=== PATIENT | female | born 1940 | race Hispanic/Latino ===

== ENCOUNTER 2022-08-14 22:29 | Emergency (ER) | payer MEDICARE, MEDICAID, SELFPAY ==
[2022-08-14 22:30] VITALS: BP 240/86; PULSE 65; RESP 16; TEMP 36.7; O2SAT 98; BMI 26.8
--- NOTE | 2022-08-14 22:50 | CT_ITS ---
STUDY: CT BRAIN WITHOUT CONTRAST REASON FOR EXAM: Female, 82 years old. headache RADIATION DOSAGE (If Supplied By Facility): CTDIvol = ( ) mGy, DLP = ( 796.11 ) mGycm TECHNIQUE: Transaxial CT imaging of the brain was performed without administration of intravenous contrast material. Individualized dose optimization techniques were used for this CT. COMPARISON: No relevant priors. FINDINGS: Normal soft tissue structures. Normal calvarium. Normal size ventricles and extra-axial spaces for the patient''s age. Normal white matter tracts of the cerebral hemispheres. There are small punctate calcifications of the basal ganglia which are seen in the aging brain as a normal variant. Normal brainstem. Normal cerebellum. There is no intracranial hemorrhage. There are no findings of an acute ischemic infarction. Intracranial atherosclerosis. Normal visualized paranasal sinuses. CT/Brain/Head without Contrast IMPRESSION: No acute disease. Electronically Signed: Bang Teixeira MD at 23:42 EDT ,
--- NOTE | 2022-08-14 22:50 | EKG12_ITS ---
Test Reason : DYSRHYTHMIA Blood Pressure : / mmHG Vent. Rate : 062 BPM Atrial Rate : 062 BPM P-R Int : 184 ms QRS Dur : 094 ms QT Int : 430 ms P-R-T Axes : 052 -15 068 degrees QTc Int : 436 ms Normal sinus rhythm Nonspecific ST abnormality Abnormal ECG Confirmed by MARGOT BRUSH, MYLENE ([id number]), digital editor JULI MIR ([id number]) on 08/17/2022 9:39:38 AM Referred By: DANIEL Confirmed By:MYLENE FROST MD
[2022-08-14 22:51] VITALS: BP 237/78; PULSE 62; RESP 19; O2SAT 96
--- NOTE | 2022-08-14 22:52 | EDS_ITS ---
HPI History of Present Illness Chief Complaint: Hypertension Narrative Narrative: Patient is an 82-year-old female with past medical history of hypertension hypothyroidism hyperlipidemia and asthma. She reports she has been taking her carvedilol twice a day as directed. She states about over the past 5 days she has been having mild intermittent headache and she states that tonight she checked her blood pressure after having a headache and realized it was elevated. She states that there has been no change in vision or chest pain and she denies any weakness or abdominal pain associated with this but based on the fact her blood pressure is elevated and she has been having this mild headache she presents the hospital for evaluation. [facility] Medical History (Updated 08/15/22 @ 00:[address] Jarvis Lovelace, DO) Diabetes Hypertension Home Medications oxycodone-acetaminophen 5 mg-325 mg tablet 1 - 2 tab PO Q4H PRN PRN Pain ##8 07/27/16 [Rx Last Taken Unknown] sulfamethoxazole 800 mg-trimethoprim 160 mg tablet 1 tab PO BID ##14 07/27/16 [Rx Last Taken Unknown] albuterol sulfate 90 mcg/actuation aerosol inhaler inhalation 08/14/22 [History Last Taken Unknown] carvedilol 6.25 mg tablet mg 08/14/22 [History Last Taken Unknown] glipizide 5 mg tablet mg 08/14/22 [History Last Taken Unknown] levothyroxine 125 mcg tablet mcg 08/14/22 [History Last Taken Unknown] naproxen 500 mg tablet mg 08/14/22 [History Last Taken Unknown] rosuvastatin 10 mg tablet mg 08/14/22 [History Last Taken Unknown] Allergy/AdvReac Type Severity Reaction Status Date / Time JENIFER Inhibitors Allergy Other Verified 08/14/22 22:58 [id number] Reductase Allergy Other Verified 08/14/22 22:58 Inhibitor Social History Smoking Status: Former smoker ROS ROS ED Constitutional Constitutional ED: Denies chills or fever(s) Eyes Eyes: Denies change in vision ENT ENT ED: Denies sore throat Cardiovascular Cardiovascular: Denies chest pain Respiratory/Chest Respiratory/Chest: Denies cough or dyspnea Gastrointestinal Gastrointestinal: Denies abdominal pain, diarrhea, nausea or vomiting Genitourinary Genitourinary ED: Denies dysuria Musculoskeletal Musculoskeletal: Denies myalgias or neck pain Integumentary Denies rash Neurologic Neurologic: Reports headache(s); Denies paresthesias or weakness Hematologic/Lymphatic Hematologic/Lymphatic: Denies easy bleeding or easy bruising EXAM Physical Exam Const Vital Signs: 08/14/22 22:30 08/14/22 22:51 08/14/22 22:55 Temperature 98.1 F Temperature Source Temporal Pulse Rate 65 62 Respiratory Rate 16 19 H Respiratory Effort Normal Non-Labored Respiratory Pattern Normal Blood Pressure 240/86 H 237/78 H Blood Pressure Mean 137 131 Pulse Ox 98 96 Oxygen Delivery Method Room Air Room Air 08/15/22 00:03 08/15/22 00:19 Temperature Temperature Source Pulse Rate Respiratory Rate Respiratory Effort Respiratory Pattern Blood Pressure 143/53 H 148/54 H Blood Pressure Mean 83 85 Pulse Ox Oxygen Delivery Method Positive well nourished and well developed General Appearance ED: well developed HEENT Reports moist mucous membranes Eyes PERRL and EOMs intact bilaterally Neck supple and no JVD Neck Narrative: No meningeal signs Resp normal respiratory effort and clear to auscultation bilaterally Cardio regular rate and regular rhythm Rate: other Other Details: Radial pulses are plus 2 out of 4 bilaterally are equal and symmetric GI normal to inspection, nondistended, normoactive bowel sounds, non-tender and non-distended GI Narrative: No voluntary guarding or rigidity no pulsatile mass Auscultation: normoactive bowel sounds Palpation: soft Extremity normal to inspection Extremity Narrative: No asymmetric edema no pitting edema negative Homans' sign bilaterally Neuro oriented x3 and CN's II-XII intact bilaterally Neuro Narrative: Cranial nerves II through XII are grossly intact there are no focal neurologic deficits. No pronator drift no dysmetria no truncal ataxia. NIH stroke scale score of 0. Sensorium / Orientation: alert Psych mental status grossly normal Skin no rashes or lesions noted MDM MDM MDM Narrative Medical decision making narrative: Patient presented to the ER hypertensive but otherwise with no signs of endorgan damage. However despite her report of headache I did elect to perform a head CT as well as basic blood work. Head CT revealed age-related changes without acute findings and blood work revealed no signs of kidney damage or cardiac event. Patient was medicated with hydralazine and clonidine and her blood pressure reduced to approximately 150/55. On reevaluation she is resting comfortably and her neurologic exam remains normal. Therefore at this time with no signs of endorgan damage and resolution of her hypertension she is otherwise safe for discharge. Lab Data Attestation: I reviewed the patient's lab results. Labs: Laboratory Results - last 24 hr 08/14/22 08/14/22 22:48 22:48 WBC 10.4 RBC 4.98 Hgb 14.1 Hct 41.1 MCV 82.5 MCH 28.3 MCHC 34.3 RDW Std Deviation 39.8 RDW Coeff of Coleman 13.5 Plt Count 222 MPV 11.0 Immature Gran % (Auto) 0.300 Neut % (Auto) 59.4 Lymph % (Auto) 30.5 Collin % (Auto) 6.9 Eos % (Auto) 2.4 Baso % (Auto) 0.5 Absolute Neuts (auto) 6.2 Absolute Lymphs (auto) 3.16 Nucleated RBC % 0 Sodium 143 Potassium 3.9 Chloride 106 Carbon Dioxide 28.0 Anion Gap 9 BUN 12 Creatinine 0.66 Estim Creat Clear Calc 42.00 Est GFR (MDRD) Af Amer 111 Est GFR (MDRD) Non-Af 92 BUN/Creatinine Ratio 18.2 Glucose 135 H Calcium 8.8 Troponin I High Sens 6 Radiography Diagnostic Testing: Clinical Impression(s) from Imaging Studies Brain CT 08/14/22 22:50 IMPRESSION: No acute disease. Electronically Signed: Bang Teixeira MD at 23:42 EDT Reading Location ID and State: [facility] / [place] , Service support , Discharge Plan Triage Chief Complaint: Hypertension ED Provider: Jarvis Lovelace Dx/Rx/DC Orders Clinical Impression: Accelerated hypertension, Hypothyroidism, Type 2 diabetes mellitus Instructions: ED Hypertension, Established Prescriptions: No Action sulfamethoxazole-trimethoprim 1 TABLET tablet 1 tab PO BID Qty: 14 0RF oxycodone-acetaminophen 1 TABLET tablet 1 - 2 tab PO Q4H PRN PRN (Reason: Pain) Qty: 8 0RF carvedilol 6.25 mg tablet Label Comments: TAKE 1 TABLET BY MOUTH TWICE DAILY WITH MEALS levothyroxine 125 mcg tablet Label Comments: TAKE 1 TABLET BY MOUTH ONCE DAILY albuterol sulfate 90 mcg/actuation HFA aerosol inhaler INHALATION Label Comments: INHALE 2 PUFFS BY MOUTH EVERY 4 HOURS NEEDED FOR WHEEZING, SHORTNESS OF BREATH, OR COUGH glipizide 5 mg tablet Label Comments: TAKE 1 TABLET BY MOUTH TWICE DAILY BEFORE MEALS naproxen 500 mg tablet Label Comments: TAKE 1 TABLET BY MOUTH TWICE DAILY NEEDED FOR PAIN AND INFLAMATION. TAKE WITH FOOD. rosuvastatin 10 mg tablet Label Comments: TAKE 1 TABLET BY MOUTH ONCE DAILY AT BEDTIME Primary Care Provider: Salbador Dinero Referrals: Salbador Dinero DO [Primary Care Provider] - Activity Restrictions/Additional Instructions: Please continue all of your medications as previously directed but talk to your family doctor about increasing your carvedilol or adding another medication for improved blood pressure control. Please return to the ER should you have any further concerns Disposition Disposition: Home, Self Care
[2022-08-14] MEDS: hydrALAZINE 20 MG/ML Vial IV (23:01)
[2022-08-14 23:04] LABS: Absolute Lymphocyte Count 3.16 X10^3/uL (0.83-4.51); Absolute Neutrophil Count 6.2 X10^3/uL (2.0-7.7); Basophil# 0.05 X10^3/uL; Basophil% 0.5 % (0-1); Eosinophil# 0.25 X10^3/uL; Eosinophils% 2.4 % (0-5); Hematocrit 41.1 % (37-47); Hemoglobin 14.1 g/dL (12.0-15.0); Lymphocyte # 3.16 X10^3/ul (0.83-4.51); Lymphocyte % 30.5 % (19-41); Mean Corp Hgb Conc 34.3 g/dL (32-36); Mean Corpuscular Hgb 28.3 pg (27.0-32.0); Mean Corpuscular Volume 82.5 fL (81-99); Monocyte# 0.72 X10^3/uL; Monocyte% 6.9 % (0-10); NRBC Flagged by Analyzer 0 % (0-5); Neutrophil # 6.15 X10^3/uL (2.7-7.7); Neutrophil % 59.4 % (47-70); Platelet Count 222 K/mm3 (150-450); RBC Distribution Width CV 13.5 % (11.6-14.6); RBC Distribution Width SD 39.8 fl (35.1-43.9); Red Blood Count 4.98 M/mm3 (4.2-5.4); White Blood Count 10.4 K/mm3 (4.4-11.0)
[2022-08-14] MEDS: cloNIDine HCl 0.2 MG Tablet PO (23:08)
[2022-08-14 23:20] LABS: Anion Gap 9 (5-15); BUN 12 mg/dL (7-18); BUN/Creat Ratio 18.2 RATIO (10-20); Calcium,Total 8.8 mg/dL (8.5-10.1); Chloride 106 mmol/L (98-107); Creatinine, Serum 0.66 mg/dL (0.55-1.02); EST Glomerular Filtration Rate 92 mL/min (>60); Est Glom Filt Rate - Afr Amer 111 mL/min (>60); Glucose 135 mg/dL (74-106); Potassium 3.9 mmol/L (3.5-5.1); Sodium Level 143 mmol/L (136-145); Troponin-I HS 6 pg/mL (3.0-54.0)
[2022-08-15 00:03] VITALS: BP 143/53
[2022-08-15 00:19] VITALS: BP 148/54
[2022-08-15 00:34] VITALS: BP 154/59; PULSE 89; RESP 15; O2SAT 98
== END 2022-08-15 00:35 | disposition home or self-care (01) ==
PROVIDERS: Emergency Provider Emergency Medicine; PCP Student in an Organized Health Care Education/Training Program; Visit Provider Emergency Medicine
DX: I10 Essential (primary) hypertension (principal); E11.9 Type 2 diabetes mellitus without complications; E03.9 Hypothyroidism, unspecified; Z87.891 Personal history of nicotine dependence; Z79.899 Other long term (current) drug therapy
CPT/HCPCS: 70450; 80048; 84484; 85025; 93005; 96374; 99284; A4216